=== PATIENT | male | born 1950 | race Caucasian/White ===

== ENCOUNTER → 2020-06-10 | Outpatient (CLI) | payer MEDICARE ==
--- NOTE | 2020-06-10 11:37 | CTL ---
EXAMINATION TYPE: CT Low Dose Lung DATE OF EXAM ORDERED: 06/10/2020 COMPARISON: [id number] HISTORY: . Low Dose CT Lung Screening CT DLP: 79.[address] CTDI: 2.22 mGy IV CONTRAST USED: None. SCREENING VISIT: First visit COMPARISON: None. TECHNIQUE: Low dose computed tomography scan was performed through the chest at 1 millimeter thick se ctions and reconstructed images in the coronal plane at [address] DIAGNOSTIC QUALITY: Satisfactory FINDINGS: LUNG NODULES: Not presentLeft lung: no nodules identified.Right lung: no nodules identified. LUNGS: COPD: Severity: Mild Fibrosis: Severity:None Lymph nodes: None Other findings: Peripheral reticulonodular infiltrates within both lung casiano right greater than lef t may reflect sequela of chronic infection for active inflammatory process. Correlate clinically. RIGHT PLEURAL SPACE: Effusion: None Calcification: None Thickening: None Pneumothorax: None LEFT PLEURAL SPACE: Effusion: None Calcification: None Thickening: None Pneumothorax: None HEART: Heart Size: Mildly enlarged Coronary calcification: Mild Pericardial effusion: None OTHER FINDINGS: Upper abdomen: Multiple hepatic cystic lesions noted. Bony thorax: Degenerative changes Supraclavicular region: No significant abnormalityOther: No significant abnormalityI IMPRESSION: 1. No distinct nodules seen. 2.Peripheral reticulonodular infiltrates within both lung casiano right greater than left may reflect sequela of chronic infection for active inflammatory process. Correlate clinically. FOLLOW UP CT CHEST RECOMMENDATION: Follow-up screening in one year. Smoking cessation recommended. CT LUNG RAD: LUNG RAD CATEGORY 2
== END | disposition home or self-care (01) ==
LOC: RADCTMAIN 10:21
PROVIDERS: ATTEND Family Medicine
DX: Z12.2 Encounter for screening for malignant neoplasm of respiratory organs (principal); R91.8 Other nonspecific abnormal finding of lung field; Z87.891 Personal history of nicotine dependence
CPT/HCPCS: 71271

== ENCOUNTER → 2020-08-01 | Outpatient (CLI) | payer MEDICARE ==
--- NOTE | 2020-08-01 14:49 | US ---
EXAMINATION TYPE: US scrotum with doppler. Grayscale and color Doppler Duplex imaging performed of t he scrotum. DATE OF EXAM: 08/01/2020 COMPARISON: NONE CLINICAL HISTORY: N50.89 testicular mass. Pt states palpable mass superior to right testicle x 3 week s EXAM MEASUREMENTS: TESTICLES: Right Testicle: 4.4 x 2.7 x 4.1 cm Left Testicle: 4.7 x 2.3 x 3.3 cm EPIDIDYMIS HEAD: Right Epididymis: Unable to visualize due to large cyst Left Epididymis: 1.4 cm Doppler performed to assess for testicular vascularity; good bilateral color flow and waveforms are s een. There is no evidence of testicular torsion. Presence of hydroceles: Small amount of fluid surrounding testicles Presence of varicoceles: possibly lateral to left testicle Right Epi head cyst at pt's palpable= 3.7 x 2.6 x 4.3 cm Microcalcs visualized within left testicle IMPRESSION: Bilateral hydroceles. Left varicocele. Large right epididymal head cyst. Left microlithiasis is amenable to follow up.
== END | disposition home or self-care (01) ==
LOC: RADUSWWP 14:06
PROVIDERS: ATTEND Family Medicine
DX: N43.3 Hydrocele, unspecified (principal); I86.1 Scrotal varices; N50.3 Cyst of epididymis
CPT/HCPCS: 76870; 93975

== ENCOUNTER → 2022-03-11 | Outpatient (CLI) | payer MEDICARE ==
--- NOTE | 2022-03-11 08:56 | CTL ---
EXAMINATION TYPE: CT Low Dose Lung DATE OF EXAM ORDERED: 03/11/2022 COMPARISON: 06/10/2020 HISTORY: . Low Dose CT Lung Screening CT DLP: 135.[address] CTDI: 3.4 mGy IV CONTRAST USED: None. SCREENING VISIT: Second COMPARISON: None. TECHNIQUE: Low dose computed tomography scan was performed through the chest at 1 millimeter thick se ctions and reconstructed images in the coronal plane at [address] DIAGNOSTIC QUALITY: Satisfactory FINDINGS: LUNG NODULES: 3 mm pulmonary nodule left upper lobe image 22. 3 mm pulmonary nodule right middle lobe image 36. Ground glass nodular density left lower lobe measures 5 mm image 50. 5.6 mm nodule right l ower lobe image 47. 4 mm pulmonary nodule image 47 right lower lobe. LUNGS: COPD: Severity: None Fibrosis: Severity:None Lymph nodes: None Other findings: None RIGHT PLEURAL SPACE: Effusion: None Calcification: None Thickening: None Pneumothorax: None LEFT PLEURAL SPACE: Effusion: None Calcification: None Thickening: None Pneumothorax: None HEART: Heart Size: Mildly enlarged Coronary calcification: Mild Pericardial effusion: None OTHER FINDINGS: Upper abdomen: Hepatic cysts redemonstrated. Bony thorax: Degenerative changes Supraclavicular region: No significant abnormalityOther: No significant abnormalityI IMPRESSION: 1. Resolution of previously noted infiltrates. Scattered sub-6 mm pulmonary nodule seen bilaterally. FOLLOW UP CT CHEST RECOMMENDATION: Follow-up screening in one year CT LUNG RAD: LUNG RAD CATEGORY 2 benign appearance and/or behavior.
== END | disposition home or self-care (01) ==
LOC: RADCTMAIN 07:49
PROVIDERS: ATTEND Family Medicine
DX: Z12.2 Encounter for screening for malignant neoplasm of respiratory organs (principal); R91.1 Solitary pulmonary nodule; Z87.891 Personal history of nicotine dependence
CPT/HCPCS: 71271